=== PATIENT | male | born 1985 | race Caucasian/White ===

== ENCOUNTER 2022-11-26 10:37 | Inpatient (IN) ==
--- NOTE | 2022-11-26 11:34 | Emergency Department Note ---
History of Present Illness General Chief complaint: Referred by Doctor Stated complaint: STROKE ASSESSMENT; REFERRED BY Time Seen by Provider: 11/26/22 11:14 Source: patient, family (Father who is at the bedside), RN notes reviewed and old records reviewed (Notes from the retinal specialist office) Mode of arrival: ambulatory Limitations: no limitations History of Present Illness Maximum Pain Intensity: 2 This patient is a 37-year-old male who was sent over from the retinal specialist office, Dr. 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 The patient tells me he is I started getting blurry on the right last Saturday. It is like a line in the middle to the right that he can see its been getting better he also had a headache but that is getting better as well as right-sided. No fall or trauma no difficulty speaking or swallowing no numbness or weakness. No difficulty ambulating. Denies chest pain shortness of breath or palpitations. no abdominal pain. no urinary symptoms. No history of any similar complaints or strokes. No blood clotting disorders in the patient or his family Past Med/Surg History Social History Smoking Status: Never smoker Feels Safe at Home: Yes Immunizations: Past medical historyseizures his last 1 was at age 15 he takes carbamazepine. No missed medications. GERD. Iron deficiency. He does have a history of hypertension and was on meds in the past but they took him off because his blood pressure was running low apparently. No history of blood clotting disorder or cardiac disease Family historyno clotting disorder Social historydoes not smoke. Rarely. Denies drug use. He is employed as a information security consultant. He lives in [place] Review of Systems A total of 10 systems reviewed and were otherwise negative Physical Exam Vital Signs Vital Signs - 24 hr 11/26/22 10:41 11/26/22 11:33 11/26/22 11:40 Temperature 36.6 C Temperature Source Temporal Artery Scan Pulse Rate 76 83 Pulse Rate [Apical] 80 Pulse Rhythm [Apical] Regular Respiratory Rate 20 13 Respiratory Effort / Characteristics Non-Labored Non-Labored Spontaneous Respiratory Depth Normal Respiratory Pattern Blood Pressure 169/109 H Blood Pressure [Right Arm] 128/89 Blood Pressure Mean 129 Blood Pressure Mean [Right Arm] 102 Blood Pressure Position [Right Arm] Semi-fowlers Pulse Oximetry 99 100 Oxygen Delivery Method Room Air Room Air Sepsis Recent Fever Within 48 Hours No Sepsis New/Unexplained Change in Mental Status No Sepsis Action Taken by Nursing No Action Required 11/26/22 13:14 Temperature Temperature Source Pulse Rate Pulse Rate [Apical] 84 Pulse Rhythm [Apical] Regular Respiratory Rate 17 Respiratory Effort / Characteristics Non-Labored Spontaneous Respiratory Depth Normal Respiratory Pattern Regular Blood Pressure Blood Pressure [Right Arm] 136/88 Blood Pressure Mean Blood Pressure Mean [Right Arm] 104 Blood Pressure Position [Right Arm] Semi-fowlers Pulse Oximetry 100 Oxygen Delivery Method Room Air Sepsis Recent Fever Within 48 Hours Sepsis New/Unexplained Change in Mental Status Sepsis Action Taken by Nursing General: Well developed well nourished in no acute distress, breathing comfortably on room air. Normal speech HEENT: Normal cephalic atraumatic. Eyes are dilated bilaterally from his district court justice visit this morning. Extraocular movements are intact. Oropharynx is pink with moist mucous membranes. No swelling of the mouth lips or tongue. Neck: Supple with a midline trachea. No meningeal signs or stiffness, no JVD or bruits. No Stridor. Chest: Clear to auscultation bilaterally. No wheezes or rhonchi. No increased work of breathing. Heart: Regular rate and rhythm without murmurs or gallops. Abdomen: Soft nontender, nondistended without rebound guarding or rigidity. Extremities: No cyanosis clubbing or edema. No calf tenderness or assymetry Spine/Back. Non tender to palpation. No CVA tenderness Skin: Good turgor without rashes. Neurologic exam: Cranial nerves two through 12 are intact. Motor and sensation are intact and symmetrical throughout. Finger-nose intact. No pronator drift Course Administered Medications Discontinued Medications Aspirin (Aspirin 81 Mg Chew) 324 mg PO NOW STA Stop: 11/26/22 13:01 Last Admin: 11/26/22 13:12 Dose: 324 mg Documented By: AB Sodium Chloride (Nss 1000ml) 1,000 mls @ 999 mls/hr IV .Q1H1M ONE Stop: 11/26/22 12:51 Last Infusion: 11/26/22 13:14 Dose: 0 mls/hr Documented By: Admin: 11/26/22 11:56 Dose: 999 mls/hr Documented By: Ioversol (Optiray 320 500ml) 112 ml IV ONCE ONE Stop: 11/26/22 12:26 Last Admin: 11/26/22 12:25 Dose: 112 ml Documented By: JANIS Medical Decision Making Differential Diagnosis Stroke, ocular migraine, carotid disease, vascular disease, clotting disorder, electrolyte or metabolic abnormality, hypertension Medical Records Attestation: I reviewed the patient's medical records. Home Medications Current Medication List: was personally reviewed by me Laboratory Data 11/26/22 10:45 11/26/22 10:45 Lab Results 11/26/22 11/26/22 11/26/22 Range/Units 10:45 10:45 10:45 WBC 7.35 (4.8-10.8) K/ul RBC 4.98 (4.70-6.10) M/uL Hgb 14.0 (14.0-18.0) g/dl Hct 41.7 L (42.0-52.0) % MCV 83.7 (80.0-100.0) fL MCH 28.1 (25.0-34.0) pg MCHC 33.6 (32.0-36.0) g/dL RDW Std Deviation 38.4 (36.4-46.3) fL RDW Coeff of Suzanne 12.7 (11.5-14.5) % Plt Count 301 (130-400) K/uL MPV 10.0 (9.4-12.4) fL ESR (0-15) mm/hr PT 10.3 (9.0-12.0) Seconds INR 1.0 (0.9-1.1) APTT 28.0 (21.0-31.0) Seconds PTT Ratio 1.0 Sodium 138 (136-145) mmol/L Potassium 4.2 (3.5-5.1) mmol/L Chloride 104 (98-107) mmol/L Carbon Dioxide 29 (21-32) mmol/L Anion Gap 5 (3-11) BUN 13 (6-23) mg/dl Creatinine 0.90 (0.6-1.4) mg/dl Est Cr Clr Drug Dosing 142.7 ml/min Est GFR ( Amer) 127.8 ml/min Est GFR (Non-Af Amer) 110.3 ml/min BUN/Creatinine Ratio 14.4 (10-20) Glucose 97 (70-99(Fasting)) mg/dl Calcium 9.4 (8.6-10.3) mg/dl Magnesium 1.9 (1.7-2.4) mg/dl Total Bilirubin 0.4 (0.2-1.0) mg/dl AST 25 (13-39) U/L ALT 44 (7-52) U/L Alkaline Phosphatase 97 (34-104) U/L Troponin I High Sens 3.7 (0-20) pg/ml C-Reactive Protein < 0.50 (0-0.5) mg/dl Total Protein 7.3 (6.0-8.3) gm/dl Albumin 4.6 (3.4-5.0) gm/dl Globulin 2.7 (2.5-4.0) gm/dl Albumin/Globulin Ratio 1.7 (0.9-2) 11/26/22 Range/Units 10:45 WBC (4.8-10.8) K/ul RBC (4.70-6.10) M/uL Hgb (14.0-18.0) g/dl Hct (42.0-52.0) % MCV (80.0-100.0) fL MCH (25.0-34.0) pg MCHC (32.0-36.0) g/dL RDW Std Deviation (36.4-46.3) fL RDW Coeff of Suzanne (11.5-14.5) % Plt Count (130-400) K/uL MPV (9.4-12.4) fL ESR 12 (0-15) mm/hr PT (9.0-12.0) Seconds INR (0.9-1.1) APTT (21.0-31.0) Seconds PTT Ratio Sodium (136-145) mmol/L Potassium (3.5-5.1) mmol/L Chloride (98-107) mmol/L Carbon Dioxide (21-32) mmol/L Anion Gap (3-11) BUN (6-23) mg/dl Creatinine (0.6-1.4) mg/dl Est Cr Clr Drug Dosing ml/min Est GFR ( Amer) ml/min Est GFR (Non-Af Amer) ml/min BUN/Creatinine Ratio (10-20) Glucose (70-99(Fasting)) mg/dl Calcium (8.6-10.3) mg/dl Magnesium (1.7-2.4) mg/dl Total Bilirubin (0.2-1.0) mg/dl AST (13-39) U/L ALT (7-52) U/L Alkaline Phosphatase (34-104) U/L Troponin I High Sens (0-20) pg/ml C-Reactive Protein (0-0.5) mg/dl Total Protein (6.0-8.3) gm/dl Albumin (3.4-5.0) gm/dl Globulin (2.5-4.0) gm/dl Albumin/Globulin Ratio (0.9-2) Imaging Data Attestation: I personally reviewed and interpreted this imaging study as follows: My Impression: Head CTno hemorrhage or mass effect seen Chest x-rayno acute infiltrate, failure, pneumothorax seen Radiologist's Impression: Chest X-Ray 11/26/22 10:45 SINGLE VIEW CHEST CLINICAL HISTORY: Strokelike symptoms. FINDINGS: An AP, portable, upright chest radiograph is obtained. No prior studies are available for comparison at the time of dictation. The cardiomediastinal silhouette is unremarkable. There is mild elevation of the right hemidiaphragm. The lungs and pleural spaces are clear. No pneumothorax is seen. The bony thorax is grossly intact. IMPRESSION: No active disease in the chest. ACT 112: Negative or not required by law. Electronically signed by: Jt Lamar M.D. 11/26/2022 11:[address] 11/26/22 10:[address] OF THE BRAIN; CT ANGIOGRAM OF THE BRAIN; CT ANGIOGRAM OF THE NECK CLINICAL HISTORY: Neurological deficit. Stroke like symptoms. COMPARISON STUDY: No priors. TECHNIQUE: Unenhanced axial CT scan of the brain is performed. Subsequently, following the IV administration of 112 of Optiray 320, CT angiogram of the head and neck was performed from the aortic arch to the vertex. Images are reviewed in the axial, sagittal, and coronal planes. 3-D MIPS images are created and assessed. IV contrast was administered without complication. All measurements were calculated based on NASCET criteria. A dose lowering technique was utilized adhering to the principles of ALARA. CT DOSE: 1183.43 mGy.cm FINDINGS: Brain parenchyma: The brain parenchyma is normal in appearance. There is no hemorrhage, mass effect, or evidence of acute territorial ischemia by CT criteria. There is no evidence of enhancing mass lesion on the angiogram phase images. The ventricles, sulci, and cisterns are normal in configuration. Rivera- white matter differentiation is preserved. No extra-axial fluid collection is seen. Thoracic aorta: Visualized portions of the thoracic aorta are normal in caliber. The aortic arch demonstrates standard 3-vessel anatomy. Right carotid arterial system: The right common carotid artery is widely patent, as are the right internal and external carotid arteries. Left carotid arterial system: The left common carotid artery is widely patent, as are the left internal and external carotid arteries. Vertebral arteries: The vertebral arteries are widely patent bilaterally noting mild right-sided dominance. Subclavian arteries: Widely patent bilaterally. Intracranial vasculature: The poarch of Gupta is developmentally complete. The internal carotid arteries are patent at the skull base, as are the anterior and middle cerebral arteries bilaterally. The vertebrobasilar system and posterior cerebral arteries are widely patent. The right vertebral artery is dominant. There is no aneurysm, high-grade stenosis, or focal vessel cut off seen throughout the intracranial circulation. Jugular veins: Patent bilaterally. Dural sinuses: Patent. Lung apices: Partially visualized upper lobe lung parenchyma appears clear. Soft tissues: The visualized pharyngeal soft tissues are normal in appearance noting angiographic phase technique. The oropharyngeal airway appears widely patent. The salivary and thyroid glands are normal in appearance. No cervical lymphadenopathy is seen. Skeletal structures: The calvarium appears intact. The cervical spine is within normal limits. Orbits: The bony orbits are intact. Orbital contents are normal as visualized. Sinuses and mastoids: There is trace mucosal thickening in the right maxillary antrum. The remaining paranasal sinuses are clear. The mastoid air cells are well pneumatized. IMPRESSION: 1. There is no hemorrhage, mass effect, or evidence of acute territorial ischemia by CT criteria. 2. Unremarkable CT angiogram of the brain. 3. Unremarkable CT angiogram of the neck. ACT 112: Negative or not required by law. Electronically signed by: Jt Lamar M.D. 11/26/2022 12:35 PM Head CTA 11/26/22 11:[address] OF THE BRAIN; CT ANGIOGRAM OF THE BRAIN; CT ANGIOGRAM OF THE NECK CLINICAL HISTORY: Neurological deficit. Stroke like symptoms. COMPARISON STUDY: No priors. TECHNIQUE: Unenhanced axial CT scan of the brain is performed. Subsequently, following the IV administration of 112 of Optiray 320, CT angiogram of the head and neck was performed from the aortic arch to the vertex. Images are reviewed in the axial, sagittal, and coronal planes. 3-D MIPS images are created and ass essed. IV contrast was administered without complication. All measurements were calculated based on NASCET criteria. A dose lowering technique was utilized adhering to the principles of ALARA. CT DOSE: 1183.43 mGy.cm FINDINGS: Brain parenchyma: The brain parenchyma is normal in appearance. There is no hemorrhage, mass effect, or evidence of acute territorial ischemia by CT criteria. There is no evidence of enhancing mass lesion on the angiogram phase images. The ventricles, sulci, and cisterns are normal in configuration. Rivera- white matter differentiation is preserved. No extra-axial fluid collection is seen. Thoracic aorta: Visualized portions of the thoracic aorta are normal in caliber. The aortic arch demonstrates standard 3-vessel anatomy. Right carotid arterial system: The right common carotid artery is widely patent, as are the right internal and external carotid arteries. Left carotid arterial system: The left common carotid artery is widely patent, as are the left internal and external carotid arteries. Vertebral arteries: The vertebral arteries are widely patent bilaterally noting mild right-sided dominance. Subclavian arteries: Widely patent bilaterally. Intracranial vasculature: The poarch of Gupta is developmentally complete. The internal carotid arteries are patent at the skull base, as are the anterior and middle cerebral arteries bilaterally. The vertebrobasilar system and posterior cerebral arteries are widely patent. The right vertebral artery is dominant. There is no aneurysm, high-grade stenosis, or focal vessel cut off seen throughout the intracranial circulation. Jugular veins: Patent bilaterally. Dural sinuses: Patent. Lung apices: Partially visualized upper lobe lung parenchyma appears clear. Soft tissues: The visualized pharyngeal soft tissues are normal in appearance noting angiographic phase technique. The oropharyngeal airway appears widely patent. The salivary and thyroid glands are normal in appearance. No cervical lymphadenopathy is seen. Skeletal structures: The calvarium appears intact. The cervical spine is within normal limits. Orbits: The bony orbits are intact. Orbital contents are normal as visualized. Sinuses and mastoids: There is trace mucosal thickening in the right maxillary antrum. The remaining paranasal sinuses are clear. The mastoid air cells are well pneumatized. IMPRESSION: 1. There is no hemorrhage, mass effect, or evidence of acute territorial ischemia by CT criteria. 2. Unremarkable CT angiogram of the brain. 3. Unremarkable CT angiogram of the neck. ACT 112: Negative or not required by law. Electronically signed by: Jt Lamar M.D. 11/26/2022 12:35 PM Neck CTA 11/26/22 11:[address] OF THE BRAIN; CT ANGIOGRAM OF THE BRAIN; CT ANGIOGRAM OF THE NECK CLINICAL HISTORY: Neurological deficit. Stroke like symptoms. COMPARISON STUDY: No priors. TECHNIQUE: Unenhanced axial CT scan of the brain is performed. Subsequently, following the IV administration of 112 of Optiray 320, CT angiogram of the head and neck was performed from the aortic arch to the vertex. Images are reviewed in the axial, sagittal, and coronal planes. 3-D MIPS images are created and assessed. IV contrast was administered without complication. All measurements were calculated based on NASCET criteria. A dose lowering technique was utilized adhering to the principles of ALARA. CT DOSE: 1183.43 mGy.cm FINDINGS: Brain parenchyma: The brain parenchyma is normal in appearance. There is no hemorrhage, mass effect, or evidence of acute territorial ischemia by CT criteria. There is no evidence of enhancing mass lesion on the angiogram phase images. The ventricles, sulci, and cisterns are normal in configuration. Rivera- white matter differentiation is preserved. No extra-axial fluid collection is seen. Thoracic aorta: Visualized portions of the thoracic aorta are normal in caliber. The aortic arch demonstrates standard 3-vessel anatomy. Right carotid arterial system: The right common carotid artery is widely patent, as are the right internal and external carotid arteries. Left carotid arterial system: The left common carotid artery is widely patent, as are the left internal and external carotid arteries. Vertebral arteries: The vertebral arteries are widely patent bilaterally noting mild right-sided dominance. Subclavian arteries: Widely patent bilaterally. Intracranial vasculature: The poarch of Gupta is developmentally complete. The internal carotid arteries are patent at the skull base, as are the anterior and middle cerebral arteries bilaterally. The vertebrobasilar system and posterior cerebral arteries are widely patent. The right vertebral artery is dominant. There is no aneurysm, high-grade stenosis, or focal vessel cut off seen throughout the intracranial circulation. Jugular veins: Patent bilaterally. Dural sinuses: Patent. Lung apices: Partially visualized upper lobe lung parenchyma appears clear. Soft tissues: The visualized pharyngeal soft tissues are normal in appearance noting angiographic phase technique. The oropharyngeal airway appears widely patent. The salivary and thyroid glands are normal in appearance. No cervical lymphadenopathy is seen. Skeletal structures: The calvarium appears intact. The cervical spine is within normal limits. Orbits: The bony orbits are intact. Orbital contents are normal as visualized. Sinuses and mastoids: There is trace mucosal thickening in the right maxillary antrum. The remaining paranasal sinuses are clear. The mastoid air cells are well pneumatized. IMPRESSION: 1. There is no hemorrhage, mass effect, or evidence of acute territorial i schemia by CT criteria. 2. Unremarkable CT angiogram of the brain. 3. Unremarkable CT angiogram of the neck. ACT 112: Negative or not required by law. Electronically signed by: Jt Lamar M.D. 11/26/2022 12:35 PM ECG Data Attestation: I personally reviewed and interpreted this ECG as follows: Indication: + weakness Rate (beats per minute): 79 Rhythm: + normal sinus ECG [place]: + Normal ECG ST segments: + Normal ST segments ECG Findings: no PVCs Comparison ECG Date: no prior available MDM Narrative This patient comes in as described above. He was placed in room C1 on a hospital monitor. he was sent over from his district court justice to have a stroke work-up as he was diagnosed this morning with a branch retinal artery occlusion. His symptoms happened a week ago and therefore he is outside of the thrombolytic and intervention window. He does have hypertension history but otherwise I would think he is low risk for strokes. No known clotting disorders. He has a normal neurologic exam with exception of dilated bilateral eyes from the district court justice. I did order stroke work-up. IV access established, EKG was obtained and shows no ischemic changes and no arrhythmia. He is not in A-fib. His troponin is not elevated. He has no significant lecture light or metabolic abnormality. He does not suggest infection. His inflammatory markers including sed rate and CRP are unremarkable and not elevated. CAT scan of his head as well as CT angio of the head and neck were unremarkable. The patient was given chewable aspirin once it was confirmed there is no hemorrhage. I do think he needs to be admitted/observed for stroke work-up as well as a hypercoagulation work-up given the fact that he is only 37. I did discuss case with Dr. Jeff Hercules from the [facility] hospitalist group and he agrees with this. I also discussed case with Dr. Ayush Barton who is a neurologist he agrees with the aspirin and does not recommend any further anticoagulation at this point since he is getting better. The patient will be admitted/observed for further treatment and evaluation Impression & Plan Acute CVA (cerebrovascular accident), Retinal artery occlusion, Visual changes, Lab test negative for COVID-19 virus, Hx of seizure disorder Discharge Plan Visit Data Chief Complaint: Referred by Doctor Stated Complaint: STROKE ASSESSMENT; REFERRED BY ED Provider: Ben Mccartney Discharge Problem: Acute CVA (cerebrovascular accident), Retinal artery occlusion, Visual changes, Lab test negative for COVID-19 virus, Hx of seizure disorder Forms Stand Alone Forms: My [facility] Referrals Referrals: PCP,NO [Physician] -
[2022-11-26 11:48] LABS: Hematocrit (blood only) 41.7 % (42.0-52.0); Mean Corpuscular Hemoglobin 28.1 pg (25.0-34.0); Mean Corpuscular Hgb Conc 33.6 g/dL (32.0-36.0); Mean Corpuscular Volume 83.7 fL (80.0-100.0); Platelet Count 301 K/uL (130-400); RDW Coefficient of Variation 12.7 % (11.5-14.5); RDW Standard Deviation 38.4 fL (36.4-46.3); Red Blood Count 4.98 M/uL (4.70-6.10); White Blood Count 7.35 K/ul (4.8-10.8)
[2022-11-26] MEDS ORDERED: SODIUM CHLORIDE 0.9% 1000ML 1,000 ML IV ONE (11:51)
--- NOTE | 2022-11-26 11:57 | XRay Report ---
SINGLE VIEW CHEST CLINICAL HISTORY: Strokelike symptoms. FINDINGS: An AP, portable, upright chest radiograph is obtained. No prior studies are available for c omparison at the time of dictation. The cardiomediastinal silhouette is unremarkable. There is mild e levation of the right hemidiaphragm. The lungs and pleural spaces are clear. No pneumothorax is seen. The bony thorax is grossly intact. IMPRESSION: No active disease in the chest. ACT 112: Negative or not required by law. Electronically signed by: Jt Lamar M.D. 11/26/2022 11:55 AM
[2022-11-26 12:10] LABS: Alanine Aminotransferase 44 U/L (7-52); Albumin Globulin Ratio 1.7 (0.9-2); Albumin Level 4.6 gm/dl (3.4-5.0); Alkaline Phosphatase 97 U/L (34-104); Anion Gap 5 (3-11); Aspartate Aminotransferase 25 U/L (13-39); BUN Creatinine Ratio 14.4 (10-20); Bilirubin,Total 0.4 mg/dl (0.2-1.0); Blood Urea Nitrogen 13 mg/dl (6-23); Calcium 9.4 mg/dl (8.6-10.3); Carbon Dioxide 29 mmol/L (21-32); Chloride 104 mmol/L (98-107); Creatinine Clr Calc Pharmacy 142.7 ml/min; Est GFR (African American) 127.8 ml/min; Est GFR (Non-African American) 110.3 ml/min; Globulin 2.7 gm/dl (2.5-4.0); Glucose 97 mg/dl (70-99(Fasting)); Magnesium 1.9 mg/dl (1.7-2.4); Potassium 4.2 mmol/L (3.5-5.1); Sodium 138 mmol/L (136-145); Total Protein 7.3 gm/dl (6.0-8.3)
[2022-11-26 12:16] LABS: Prothrombin Time 10.3 Seconds (9.0-12.0); Troponin I High Sensitivity 3.7 pg/ml (0-20)
[2022-11-26] MEDS ORDERED: OPTIRAY 320 500ml IV ONE (12:25)
--- NOTE | 2022-11-26 12:36 | CT Scan Report ---
UNENHANCED CT OF THE BRAIN; CT ANGIOGRAM OF THE BRAIN; CT ANGIOGRAM OF THE NECK CLINICAL HISTORY: Neurological deficit. Stroke like symptoms. COMPARISON STUDY: No priors. TECHNIQUE: Unenhanced axial CT scan of the brain is performed. Subsequently, following the IV adminis tration of 112 of Optiray 320, CT angiogram of the head and neck was performed from the aortic arch t o the vertex. Images are reviewed in the axial, sagittal, and coronal planes. 3-D MIPS images are cre ated and assessed. IV contrast was administered without complication. All measurements were calculate d based on NASCET criteria. A dose lowering technique was utilized adhering to the principles of ALA RA. CT DOSE: 1183.43 mGy.cm FINDINGS: Brain parenchyma: The brain parenchyma is normal in appearance. There is no hemorrhage, mass effect, or evidence of acute territorial ischemia by CT criteria. There is no evidence of enhancing mass lesi on on the angiogram phase images. The ventricles, sulci, and cisterns are normal in configuration. Gr ay-white matter differentiation is preserved. No extra-axial fluid collection is seen. Thoracic aorta: Visualized portions of the thoracic aorta are normal in caliber. The aortic arch demo nstrates standard 3-vessel anatomy. Right carotid arterial system: The right common carotid artery is widely patent, as are the right int ernal and external carotid arteries. Left carotid arterial system: The left common carotid artery is widely patent, as are the left international broadcast music librarian al and external carotid arteries. Vertebral arteries: The vertebral arteries are widely patent bilaterally noting mild right-sided ruel nance. Subclavian arteries: Widely patent bilaterally. Intracranial vasculature: The [place] of Gupta is developmentally complete. The internal carotid rubi walt are patent at the skull base, as are the anterior and middle cerebral arteries bilaterally. The vertebrobasilar system and posterior cerebral arteries are widely patent. The right vertebral artery is dominant. There is no aneurysm, high-grade stenosis, or focal vessel cut off seen throughout the i ntracranial circulation. Jugular veins: Patent bilaterally. Dural sinuses: Patent. Lung apices: Partially visualized upper lobe lung parenchyma appears clear. Soft tissues: The visualized pharyngeal soft tissues are normal in appearance noting angiographic pha se technique. The oropharyngeal airway appears widely patent. The salivary and thyroid glands are nor mal in appearance. No cervical lymphadenopathy is seen. Skeletal structures: The calvarium appears intact. The cervical spine is within normal limits. Orbits: The bony orbits are intact. Orbital contents are normal as visualized. Sinuses and mastoids: There is trace mucosal thickening in the right maxillary antrum. The remaining paranasal sinuses are clear. The mastoid air cells are well pneumatized. IMPRESSION: 1. There is no hemorrhage, mass effect, or evidence of acute territorial ischemia by CT criteria. 2. Unremarkable CT angiogram of the brain. 3. Unremarkable CT angiogram of the neck. ACT 112: Negative or not required by law. Electronically signed by: Jt Lamar M.D. 11/26/2022 12:35 PM
[2022-11-26] MEDS ORDERED: ASPIRIN 81 MG CHEW PO STA (13:00)
[2022-11-26 13:51] LABS: C Reactive Protein < 0.50 mg/dl (0-0.5)
--- NOTE | 2022-11-26 14:01 | History & Physical Report ---
Date of Service November 26, 2022 Assessment & Plan (1) Retinal artery occlusion: Plan: Branch Symptoms started one week ago and improving ASA 324mg PO given in ER. ER provider discussed with neurology and recommended just continuing ASA alone. 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 The patient reports first having symptoms of seeing a line on his right eye on Saturday and went to [facility]. He was diagnosed with possible ocular migraine with associated right neck and frontal headache although he has no significant history of migraines. However his symptoms persisted therefore he followed up with a retinal specialist office Dr Danyel mancuso and was diagnosed with a branch retinal artery occlusion. Therefore he was sent to the ER for further evaluation. He denies any other symptoms of stroke such as change in speech, vision, hearing, extremity weakness or change in sensation. No significant family history of strokes or heart attack at a young age. He has a history of seizures for which he takes compazine but last seizure was aged 15. Allergies Allergy/AdvReac Type Severity Reaction Status Date / Time coconut Allergy Mild Hives Verified 11/26/22 20:07 Home Medications Medication Instructions Recorded Confirmed Type asqzcbtsch-drynuymwhycjg-eurcsnov 1 tab PO Q8 PRN Headache 11/26/22 11/26/22 History 50 mg-325 mg-40 mg tablet carbamazepine 300 mg 600 mg PO DAILY 11/26/22 11/26/22 History capsule,extended release [id number] pantoprazole 40 mg tablet,delayed 40 mg PO DAILY 11/26/22 11/26/22 History release Past Med/Surg History Medical History (Updated 11/27/22 @ 07:28 by Jeff Hercules MD) Hx of seizure disorder Social History Smoking Status: Never smoker Second Hand Exposure: No; Do You Dip or Chew Tobacco: No; Tobacco Cessation Education Requested by Patient: No Hx Alcohol Use: Yes Alcohol type: beer Hx Substance Use: No Preferred Language: Azerbaijani Part Time Flexible Clerk Required: No Beliefs That Will Affect Care: None Current Living Situation: Spouse Other Information That Helps Us Care for You: No Feels Safe at Home: Yes Safety Concerns: Feels Safe At This Time Review of Systems Review of Systems: All systems reviewed & are unremarkable except as noted in HPI & below Physical Exam Constitutional: WD/WN, vitals as above Eyes: PERRL, conjunctivae normal, anicteric sclerae normal visual pearson by confrontation ENMT: external ear and nose normal, oropharynx normal Neck: trachea midline, no thyromegaly Respiratory: normal respiratory effort, lungs clear to auscultation Cardiovascular: RRR, no murmur, no edema Gastrointestinal (Abdomen): normal bowel sounds, soft, nontender, no hepatosplenomegaly Musculoskeletal: no cyanosis or clubbing, extremities motor strength 5/5 Skin: no rashes, warm and dry Neurologic: moves all extremities and awake; not confused Psychiatric: A+Ox3, euthymic affect Results & Data Results & Data Vital Signs (Past 12 Hours) Vital Signs Temp Pulse Pulse Resp BP BP Pulse Ox 11/26/22 13:14 84 17 136/88 100 11/26/22 11:40 83 11/26/22 11:33 80 13 128/89 100 11/26/22 10:41 36.6 C 76 20 169/109 H 99 O2 Del Method 11/26/22 13:14 Room Air 11/26/22 11:40 11/26/22 11:33 Room Air 11/26/22 10:41 Room Air Laboratory Results Abnormal lab results 11/26/22 Range/Units 10:45 Hct 41.7 L (42.0-52.0) % Diagnostic Findings SINGLE VIEW CHEST CLINICAL HISTORY: Strokelike symptoms. FINDINGS: An AP, portable, upright chest radiograph is obtained. No prior studies are available for comparison at the time of dictation. The cardiomediastinal silhouette is unremarkable. There is mild elevation of the right hemidiaphragm. The lungs and pleural spaces are clear. No pneumothorax is seen. The bony thorax is grossly intact. IMPRESSION: No active disease in the chest. UNENHANCED CT OF THE BRAIN; CT ANGIOGRAM OF THE BRAIN; CT ANGIOGRAM OF THE NECK CLINICAL HISTORY: Neurological deficit. Stroke like symptoms. COMPARISON STUDY: No priors. TECHNIQUE: Unenhanced axial CT scan of the brain is performed. Subsequently, following the IV administration of 112 of Optiray 320, CT angiogram of the head and neck was performed from the aortic arch to the vertex. Images are reviewed in the axial, sagittal, and coronal planes. 3-D MIPS images are created and assessed. IV contrast was administered without complication. All measurements were calculated based on NASCET criteria. A dose lowering technique was utilized adhering to the principles of ALARA. CT DOSE: 1183.43 mGy.cm FINDINGS: Brain parenchyma: The brain parenchyma is normal in appearance. There is no hemorrhage, mass effect, or evidence of acute territorial ischemia by CT criteria. There is no evidence of enhancing mass lesion on the angiogram phase images. The ventricles, sulci, and cisterns are normal in configuration. Rivera- white matter differentiation is preserved. No extra-axial fluid collection is seen. Thoracic aorta: Visualized portions of the thoracic aorta are normal in caliber. The aortic arch demonstrates standard 3-vessel anatomy. Right carotid arterial system: The right common carotid artery is widely patent, as are the right internal and external carotid arteries. Left carotid arterial system: The left common carotid artery is widely patent, as are the left internal and external carotid arteries. Vertebral arteries: The vertebral arteries are widely patent bilaterally noting mild right-sided dominance. Subclavian arteries: Widely patent bilaterally. Intracranial vasculature: The [place] is developmentally complete. The internal carotid arteries are patent at the skull base, as are the anterior and middle cerebral arteries bilaterally. The vertebrobasilar system and posterior cerebral arteries are widely patent. The right vertebral artery is dominant. There is no aneurysm, high-grade stenosis, or focal vessel cut off seen throughout the intracranial circulation. Jugular veins: Patent bilaterally. Dural sinuses: Patent. Lung apices: Partially visualized upper lobe lung parenchyma appears clear. Soft tissues: The visualized pharyngeal soft tissues are normal in appearance noting angiographic phase technique. The oropharyngeal airway appears widely patent. The salivary and thyroid glands are normal in appearance. No cervical lymphadenopathy is seen. Skeletal structures: The calvarium appears intact. The cervical spine is within normal limits. Orbits: The bony orbits are intact. Orbital contents are normal as visualized. Sinuses and mastoids: There is trace mucosal thickening in the right maxillary antrum. The remaining paranasal sinuses are clear. The mastoid air cells are well pneumatized. IMPRESSION: 1. There is no hemorrhage, mass effect, or evidence of acute territorial ischemi a by CT criteria. 2. Unremarkable CT angiogram of the brain. 3. Unremarkable CT angiogram of the neck. Medications Administered ER Medications Given: NSS 1L bolus Aspirin 324mg PO ECG Rate (beats per minute): 79 Rhythm: normal sinus Findings: no acute ischemic change Comparison ECG Date: no prior available Code Status & VTE Plan Code Status Full VTE Prophylaxis Plan VTE Prophylaxis will be ordered: No PG Care Time/CCT Total # of Minutes Spent Total Time Spent with Patient: Total time spent is greater than 50% in coordination of care (as documented) at patient's floor/unit and/or counseling patient: Coding Level of Care Code 47027 INT INP/OBS CARE 2/55MIN Diagnoses Retinal artery occlusion H34.9 Visual changes H53.9 Hx of seizure disorder Z86.69
[2022-11-26] MEDS ORDERED: ACETAMINOPHEN 325 MG TAB PO PRN (15:29)
[2022-11-26] MEDS ORDERED: ONDANSETRON INJ 2 MG/ML 2 ML VIAL IV PRN (15:29)
--- NOTE | 2022-11-26 15:54 | Magnetic Resonance Report ---
MRI OF THE BRAIN WITHOUT IV CONTRAST CLINICAL HISTORY: Retinal artery occlusion. COMPARISON STUDY: CT of the brain performed the same day 11/26/2022. TECHNIQUE: MRI of the brain was performed utilizing various T1 and T2-weighted sequences in the axial , sagittal, and coronal planes. IV contrast was not administered for this examination. FINDINGS: Brain parenchyma: The brain parenchyma is normal in appearance. There is no hemorrhage or mass effect . There is no restricted diffusion to suggest acute ischemia. Rivera-white matter differentiation is pr eserved. No extra-axial fluid collection is seen. The cerebellar tonsils are normal in configuration. Ventricles, sulci, and cisterns: Normal in configuration. Pituitary and sella: Unremarkable. Intracranial vasculature: Normal flow voids are maintained at the skull base. Orbits: The bony orbits are grossly intact. Orbital contents are normal in appearance. Sinuses and mastoids: Clear. Calvarium: Unremarkable. Cervical cord: Partially visualized cervical spinal cord is normal in morphology and signal intensity . IMPRESSION: No acute intracranial abnormality. ACT 112: Negative or not required by law. Electronically signed by: Jt Lamar M.D. 11/26/2022 3:53 PM
--- NOTE | 2022-11-26 21:32 | XCELERA ---
[id number]
[2022-11-27] MEDS: [UNRECOGNIZED DRUG - REMARK] SCH ×2 (01:01→08:45)
[2022-11-27 07:48] LABS: Basophils # (auto) 0.06 K/uL (0-0.2); Eosinophils # (auto) 0.15 K/uL (0-0.50); Eosinophils % (auto) 2.6 %; Hematocrit (blood only) 39.5 % (42.0-52.0); Hemoglobin 13.6 g/dl (14.0-18.0); Immature Granulocytes # (auto) 0.02 K/uL (0.01-0.20); Immature Granulocytes % (auto) 0.3 %; Lymphocytes # (auto) 1.73 K/uL (1.2-3.4); Lymphocytes % (auto) 29.7 %; Mean Corpuscular Hemoglobin 28.2 pg (25.0-34.0); Mean Corpuscular Hgb Conc 34.4 g/dL (32.0-36.0); Mean Platelet Volume 9.9 fL (9.4-12.4); Monocytes % (auto) 6.9 %; Neutrophils # (auto) 3.47 K/uL (1.40-6.50); Neutrophils % (auto) 59.5 %; Platelet Count 264 K/uL (130-400); RDW Coefficient of Variation 12.8 % (11.5-14.5); Red Blood Count 4.82 M/uL (4.70-6.10); White Blood Count 5.83 K/ul (4.8-10.8)
[2022-11-27 08:03] LABS: Albumin Level 4.1 gm/dl (3.4-5.0); BUN Creatinine Ratio 17.4 (10-20); Bilirubin,Total 0.5 mg/dl (0.2-1.0); Calcium 8.8 mg/dl (8.6-10.3); Chol HDL Ratio 4.5 (0-5); Creatinine Clr Calc Pharmacy 184.1 ml/min; Est GFR (African American) 142.6 ml/min; Globulin 2.1 gm/dl (2.5-4.0); Total Protein 6.2 gm/dl (6.0-8.3)
--- NOTE | 2022-11-27 08:42 | Neurology Consultation ---
Date of Consultation November 27, 2022 Assessment & Plan (1) Branch retinal artery occlusion of right eye: (2) Hx of seizure disorder: Plan patient had the onset acute blurry vision November 19 secondary to a branch retinal artery occlusion right eye, proven by Dr. Montaño, a retinal specialist, on November 26. Clinically, he is making improvements and feels he is about 50% better in that eye that he was a week ago. He was having some nonspecific occipital headaches but these have resolved. On exam he has no focal findings, meningeal signs, or encephalopathy. Testing has been largely unremarkable and he has no arterial issues in the head and neck by CT angiography. MRI of the brain shows no acute or chronic vascular changes. Echocardiogram showed some very mild left ventricular hypertrophy (consistent with hypertension ) and he was hypertensive on admission. The etiology of the branch retinal artery occlusion is likely secondary to hypertensive small vessel ischemic disease. Patient has a history of seizure disorder (uncertain type) as a child. He has had no seizures on carbamazepine since age 15. Recommendations: 1. continue with 81 mg aspirin tablet daily. 2. since his total cholesterol and triglycerides were normal and he has no evidence of cerebral vascular disease of a chronic nature, I do not believe he needs a statin. 3. Consider low-dose antihypertensive given his hypertensive history, the right branch stroke, and slight LVH. 4. check carbamazepine level (trough) -this could be done as an outpatient 5. I see no reason to restrict work or driving at this time. 6. I have no further neurologic testing or treatment recommendations to make at this time. Please contact me if I can be of further assistance on this case. Overall, I spent a total of 80 minutes with this case including review of records, review of CT and MRI films, direct evaluation the patient at bedside, report generation, and discussion of the case with the patient and RN at bedside and Dr. Dawson including differential diagnosis and treatment options. History of Present Illness Reason for Consultation: patient is a 37-year-old, who I was asked to see at the request of Dr. Hercules, neurologic consultation regarding a subacute right branch retinal artery occlusion Requesting Physician: Dr. Hercules Attending Physician: Jeff Dawson History of Present Illness this patient has a history of seizures as a very young child with no seizure after age 15, completely controlled on carbamazepine ER 600 mg a day. The patient has had a history of hypertension in the past having been on lisinopril but more recently he has not been on this medication. He denies hypertension, heart disease, previous stroke, dyslipidemia, or tobacco use. Patient was at work November 19 at 10:00 p.m. 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 It was a horizontal line in his central vision with no blurriness above or below this line. It was a cloudy color and he could see a little bit through it. He also had an occipital headache but he did not have any eye pain. There was no light sensitivity and the left eye was uninvolved. Over time, the headache would come and go and was fairly mild. Over the course of a week the vision mildly improved and he could see through the line a little bit better. Currently it is about 50% better than it was a week ago. On SaturdayNovember 26, he saw Dr. Montaño, a retinal specialist, who diagnosed a branch retinal artery occlusion in the right eye. He did an eye injection ( unknown medication ) And sent him to the emergency room. He arrived at the emergency room at 10:41 a.m. on November 26 with a temperature 36.6, pulse 76 and regular, blood pressure 2169/109, respiratory rate 20, and O2 saturation 99%. His neurologic examination was normal. There were no focal findings, meningeal signs, or encephalopathy. Therefore, NIH stroke scale was 0. CBC and Chem profile were unremarkable. Sed rate was 12 and CRP was less than 0.5. TSH was normal. Chest x-ray was unremarkable. CT angiography of the head and neck showed no vessel anomalies or stenoses. CT scan of the head showed no abnormalities. MRI of the brain was normal and showed no old small vessel ischemic disease. Echocardiogram was unremarkable although there was some very mild left ventricular hypertrophy Today the patient is stable and has no other issues or problems. He has no headache. Triglycerides were 125 and total cholesterol 177. Blood pressure is 126/84 and hemoglobin A1c is pending glucose was 93. Allergies Allergy/AdvReac Type Severity Reaction Status Date / Time coconut Allergy Mild Hives Verified 11/26/22 20:07 Home Medications Medication Instructions Recorded Confirmed Type pswxkkaeam-ubnjflrppvzjk-bgsohbcd 1 tab PO Q8 PRN Headache 11/26/22 11/26/22 History 50 mg-325 mg-40 mg tablet carbamazepine 300 mg 600 mg PO DAILY 11/26/22 11/26/22 History capsule,extended release [id number] pantoprazole 40 mg tablet,delayed 40 mg PO DAILY 11/26/22 11/26/22 History release Patient History Medical History Hx of seizure disorder Family History Mother Thyroid disease Father Dyslipidemia History of seizures as a child Social History Smoking Status: Never smoker Second Hand Exposure: No; Hx Alcohol Use: Yes Alcohol type: beer Alcohol Intake Frequency: 2-3 x/Week Alcohol Intake Frequency Comment: up to 3 beers once per week on weekend Hx Substance Use: No Preferred Language: Nepali Supervisor Sample Required: No Beliefs That Will Affect Care: None Current Living Situation: Spouse current occupational status: employed current occupation: network security officer Feels Safe at Home: Yes Review of Systems Constitutional: no fever, no fatigue and no weakness Eyes: + problem reported ( blurry horizontal line centrally in the right eye); no diplopia, no eye pain and no worsening vision Ear, Nose, Mouth, Throat: no ear pain, no tinnitus, no hearing loss, no dizziness, no snoring, no hoarseness and no dysphagia Respiratory: no cough and no dyspnea Cardiovascular: no chest pain, no palpitations and no lightheadedness Gastrointestinal: no abdominal pain, no nausea and no vomiting Musculoskeletal: no back pain, no neck pain, no radicular pain, no joint pain and no myalgia Integumentary: no rash and no lesions Neurologic: no gait abnormality, no localized weakness, no generalized weakness, no tingling, no numbness, no tremor(s), no abnormal movements, no headache(s), no abnormal speech, no confusion and no memory loss Psychiatric: no depression, no irritability, no anxiety, no difficulty concentrating, no confusion and no hallucinations Endocrine: no fatigue and no flushing Hematologic / Lymphatic: no easy bleeding and no easy bruising Allergy / Immunological: no urticaria and no problem reported Exam (Neuro) Physical Exam: The patient is right-handed. The patient is awake, alert, and attentive. Speech is normal without any aphasia or dysarthria. The patient can name objects, repeat phrases, and has normal spontaneous speech. Mentation and thought processes are intact, with orientation to person, place and time, and normal fund of knowledge. Attention and concentration are normal. Mood and affect are normal and appropriate. G eneral appearance and grooming are normal. Short and long-term memory are intact. The discs are sharp with positive venous pulsations bilaterally. There are no exudates, hemorrhages, or blood vessel changes seen. Pupils are 4 mm bilaterally and reactive to light. Extraocular eye muscles are intact without nystagmus. Visual acuity and visual pearson seem normal grossly to confrontation. There are no deficits to sensation in the face in all 3 distributions of the fifth cranial nerve bilaterally. Corneal reflexes are positive bilaterally. Facial strength and symmetry was normal bilaterally. Hearing seems normal bilaterally. Palate moves well without asymmetry. There is normal sternocleidomastoid and trapezius (shoulder shrug) strength bilaterally. Tongue is midline with good strength bilaterally. Neck has a full range of motion without discomfort. There are no cervical bruits bilaterally. There are no cranial or ocular bruits. Heart is without murmur. There is a regular rhythm and rate. Cervical, thoracic, and lumbar spine are nontender to palpation. Gait is narrow based, with good arm swing, turns, and stance. Balance is normal eyes open or closed. With outstretched arms there is no drift. There are no resting, postural, or action tremors. There is no ataxia with finger to nose testing. There is good facility in the hands. No other abnormal involuntary movements are noted. Motor strength is 5/5 diffusely in the arms bilaterally including deltoids, biceps, triceps, brachioradialis, wrist flexors and extensors, professor of chemistry, and intrinsic hand muscles. Motor strength is 5/5 diffusely in the legs bilaterally including hip flexors, quadriceps, hamstrings, gastrocnemius, tibialis anterior, tibialis posterior, and Peroneii muscles. Toe extensors are normal and there is good bulk in the extensor digitorum brevis muscles bilaterally. The limbs have good tone without rigidity or spasticity. There is no atrophy noted in the muscles. Muscle bulk is normal, there is no tenderness to palpation, no myotonia to percussion, and no fasciculations seen. Sensory examination is intact to touch and pin throughout all 4 limbs diffusely. Reflexes are 2/4 in the biceps, triceps, brachioradialis, quadriceps, and Achilles tendons bilaterally. There is no clonus bilaterally. Toes are downgoing with plantar stimulation bilaterally. Peripheral pulses are present and of normal quality distally in all 4 limbs. There is no peripheral edema noted in the limbs. Results & Data Vital Signs (Past 12 Hours) Vital Signs Temp Pulse Pulse Resp BP Pulse Ox O2 Del Method 11/27/22 07:15 60 11/27/22 04:00 36.4 C L 71 18 126/84 97 Room Air 11/26/22 23:05 36.5 C 70 18 122/84 97 Room Air 11/26/22 23:27 68 PG Care Time/CCT Total # of Minutes Spent Total Time Spent with Patient: Total time spent is greater than 50% in coordination of care (as documented) at patient's floor/unit and/or counseling patient: Coding Level of Care Code 07518 IN/OBS CONSULT LVL 5,80M Diagnoses Branch retinal artery occlusion of right eye H34.231 Hx of seizure disorder Z86.69 Time Spent (min) 80
[2022-11-27 08:49] LABS: Estimated Average Glucose 97 mg/dl
[2022-11-27] MEDS ORDERED: PANTOprazole 40 MG TAB PO SCH (09:00)
[2022-11-27] MEDS ORDERED: ASPIRIN 81 MG ECTAB PO SCH (09:00)
--- NOTE | 2022-11-27 11:10 | Discharge Summary ---
Date of Service date of admission - November 26, 2022 date of discharge - November 27, 2022 Admission HPI Per Admitting Provider Martah Obrien is a 37 year old male with history of seizures who presents to the ER on advice of his clinical services director due to a branch retinal artery occlusion seen on his right eye. The patient reports first having symptoms of seeing a line on his right eye on Saturday and went to [facility]. He was diagnosed with possible ocular migraine with associated right neck and frontal headache although he has no significant history of migraines. However his symptoms persisted therefore he followed up with a retinal specialist office Dr Danyel mancuso and was diagnosed with a branch retinal artery occlusion. Therefore he was sent to the ER for further evaluation. He denies any other symptoms of stroke such as change in speech, vision, hearing, extremity weakness or change in sensation. No significant family history of strokes or heart attack at a young age. He has a history of seizures for which he takes compazine but last seizure was aged 15. Principal Diagnosis Branch Retinal Artery Occlusion of Right Eye Discharge Exam gen - NAD, appears well eyes - PERRL neck - no JVD heart - RRR, s1 s2, no murmur lungs - CTA b/l abd - soft NT ND BS+ ext - no edema, pulses 2+ b/l neuro - strength 5/5 x 4 exts; no focal deficits Discharge Data Allergies Allergy/AdvReac Type Severity Reaction Status Date / Time coconut Allergy Mild Hives Verified 11/26/22 20:07 Consultations [facility] - Ayush Barton MD Procedures Performed Echocardiogram: Ordered Studies Chest X-Ray 11/26/22 10:45 SINGLE VIEW CHEST CLINICAL HISTORY: Strokelike symptoms. FINDINGS: An AP, portable, upright chest radiograph is obtained. No prior studies are available for comparison at the time of dictation. The cardiomediastinal silhouette is unremarkable. There is mild elevation of the right hemidiaphragm. The lungs and pleural spaces are clear. No pneumothorax is seen. The bony thorax is grossly intact. IMPRESSION: No active disease in the chest. ACT 112: Negative or not required by law. Electronically signed by: Jt Lamar M.D. 11/26/2022 11:[address] 11/26/22 10:[address] OF THE BRAIN; CT ANGIOGRAM OF THE BRAIN; CT ANGIOGRAM OF THE NECK CLINICAL HISTORY: Neurological deficit. Stroke like symptoms. COMPARISON STUDY: No priors. TECHNIQUE: Unenhanced axial CT scan of the brain is performed. Subsequently, following the IV administration of 112 of Optiray 320, CT angiogram of the head and neck was performed from the aortic arch to the vertex. Images are reviewed in the axial, sagittal, and coronal planes. 3-D MIPS images are created and assessed. IV contrast was administered without complication. All measurements were calculated based on NASCET criteria. A dose lowering technique was utilized adhering to the principles of ALARA. CT DOSE: 1183.43 mGy.cm FINDINGS: Brain parenchyma: The brain parenchyma is normal in appearance. There is no hemorrhage, mass effect, or evidence of acute territorial ischemia by CT criteria. There is no evidence of enhancing mass lesion on the angiogram phase images. The ventricles, sulci, and cisterns are normal in configuration. Rivera- white matter differentiation is preserved. No extra-axial fluid collection is seen. Thoracic aorta: Visualized portions of the thoracic aorta are normal in caliber. The aortic arch demonstrates standard 3-vessel anatomy. Right carotid arterial system: The right common carotid artery is widely patent, as are the right internal and external carotid arteries. Left carotid arterial system: The left common carotid artery is widely patent, as are the left internal and external carotid arteries. Vertebral arteries: The vertebral arteries are widely patent bilaterally noting mild right-sided dominance. Subclavian arteries: Widely patent bilaterally. Intracranial vasculature: The [place] is developmentally complete. The internal carotid arteries are patent at the skull base, as are the anterior and middle cerebral arteries bilaterally. The vertebrobasilar system and posterior cerebral arteries are widely patent. The right vertebral artery is dominant. There is no aneurysm, high-grade stenosis, or focal vessel cut off seen throughout the intracranial circulation. Jugular veins: Patent bilaterally. Dural sinuses: Patent. Lung apices: Partially visualized upper lobe lung parenchyma appears clear. Soft tissues: The visualized pharyngeal soft tissues are normal in appearance noting angiographic phase technique. The oropharyngeal airway appears widely patent. The salivary and thyroid glands are normal in appearance. No cervical lymphadenopathy is seen. Skeletal structures: The calvarium appears intact. The cervical spine is within normal limits. Orbits: The bony orbits are intact. Orbital contents are normal as visualized. Sinuses and mastoids: There is trace mucosal thickening in the right maxillary antrum. The remaining paranasal sinuses are clear. The mastoid air cells are well pneumatized. IMPRESSION: 1. There is no hemorrhage, mass effect, or evidence of acute territorial ischemia by CT criteria. 2. Unremarkable CT angiogram of the brain. 3. Unremarkable CT angiogram of the neck. ACT 112: Negative or not required by law. Electronically signed by: Jt Lamar M.D. 11/26/2022 12:35 PM Head CTA 11/26/22 11:[address] OF THE BRAIN; CT ANGIOGRAM OF THE BRAIN; CT ANGIOGRAM OF THE NECK CLINICAL HISTORY: Neurological deficit. Stroke like symptoms. COMPARISON STUDY: No priors. TECHNIQUE: Unenhanced axial CT scan of the brain is performed. Subsequently, following the IV administration of 112 of Optiray 320, CT angiogram of the head and neck was performed from the aortic arch to the vertex. Images are reviewed in the axial, sagittal, and coronal planes. 3-D MIPS images are created and assessed. IV contrast was administered without complication. All measurements were calculated based on NASCET criteria. A dose lowering technique was utilized adhering to the principles of ALARA. CT DOSE: 1183.43 mGy.cm FINDINGS: Brain parenchyma: The brain parenchyma is normal in appearance. There is no hemorrhage, mass effect, or evidence of acute territorial ischemia by CT criteria. There is no evidence of enhancing mass lesion on the angiogram phase images. The ventricles, sulci, and cisterns are normal in configuration. Rivera- white matter differentiation is preserved. No extra-axial fluid collection is seen. Thoracic aorta: Visualized portions of the thoracic aorta are normal in caliber. The aortic arch demonstrates standard 3-vessel anatomy. Right carotid arterial system: The right common carotid artery is widely patent, as are the right internal and external carotid arteries. Left carotid arterial system: The left common carotid artery is widely patent, as are the left internal and external carotid arteries. Vertebral arteries: The vertebral arteries are widely patent bilaterally noting mild right-sided dominance. Subclavian arteries: Widely patent bilaterally. Intracranial vasculature: The [place] is developmentally complete. The internal carotid arteries are patent at the skull base, as are the anterior and middle cerebral arteries bilaterally. The vertebrobasilar system and posterior cerebral arteries are widely patent. The right vertebral artery is dominant. There is no aneurysm, high-grade stenosis, or focal vessel cut off seen throughout the intracranial circulation. Jugular veins: Patent bilaterally. Dural sinuses: Patent. Lung apices: Partially visualized upper lobe lung parenchyma appears clear. Soft tissues: The visualized pharyngeal soft tissues are normal in appearance noting angiographic phase technique. The oropharyngeal airway appears widely patent. The salivary and thyroid glands are normal in appearance. No cervical lymphadenopathy is seen. Skeletal structures: The calvarium appears intact. The cervical spine is within normal limits. Orbits: The bony orbits are intact. Orbital contents are normal as visualized. Sinuses and mastoids: There is trace mucosal thickening in the right maxillary antrum. The remaining paranasal sinuses are clear. The mastoid air cells are well pneumatized. IMPRESSION: 1. There is no hemorrhage, mass effect, or evidence of acute territorial ischemia by CT criteria. 2. Unremarkable CT angiogram of the brain. 3. Unremarkable CT angiogram of the neck. ACT 112: Negative or not required by law. Electronically signed by: Jt Lamar M.D. 11/26/2022 12:35 PM Neck CTA 11/26/22 11:[address] OF THE BRAIN; CT ANGIOGRAM OF THE BRAIN; CT ANGIOGRAM OF THE NECK CLINICAL HISTORY: Neurological deficit. Stroke like symptoms. COMPARISON STUDY: No priors. TECHNIQUE: Unenhanced axial CT scan of the brain is performed. Subsequently, following the IV administration of 112 of Optiray 320, CT angiogram of the head and neck was performed from the aortic arch to the vertex. Images are reviewed in the axial, sagittal, and coronal planes. 3-D MIPS images are created and assessed. IV contrast was administered without complication. All measurements were calculated based on NASCET criteria. A dose lowering technique was utilized adhering to the principles of ALARA. CT DOSE: 1183.43 mGy.cm FINDINGS: Brain parenchyma: The brain parenchyma is normal in appearance. There is no hemorrhage, mass effect, or evidence of acute territorial ischemia by CT cri teria. There is no evidence of enhancing mass lesion on the angiogram phase images. The ventricles, sulci, and cisterns are normal in configuration. Rivera- white matter differentiation is preserved. No extra-axial fluid collection is seen. Thoracic aorta: Visualized portions of the thoracic aorta are normal in caliber. The aortic arch demonstrates standard 3-vessel anatomy. Right carotid arterial system: The right common carotid artery is widely patent, as are the right internal and external carotid arteries. Left carotid arterial system: The left common carotid artery is widely patent, as are the left internal and external carotid arteries. Vertebral arteries: The vertebral arteries are widely patent bilaterally noting mild right-sided dominance. Subclavian arteries: Widely patent bilaterally. Intracranial vasculature: The [place] is developmentally complete. The internal carotid arteries are patent at the skull base, as are the anterior and middle cerebral arteries bilaterally. The vertebrobasilar system and posterior cerebral arteries are widely patent. The right vertebral artery is dominant. There is no aneurysm, high-grade stenosis, or focal vessel cut off seen throughout the intracranial circulation. Jugular veins: Patent bilaterally. Dural sinuses: Patent. Lung apices: Partially visualized upper lobe lung parenchyma appears clear. Soft tissues: The visualized pharyngeal soft tissues are normal in appearance noting angiographic phase technique. The oropharyngeal airway appears widely patent. The salivary and thyroid glands are normal in appearance. No cervical lymphadenopathy is seen. Skeletal structures: The calvarium appears intact. The cervical spine is within normal limits. Orbits: The bony orbits are intact. Orbital contents are normal as visualized. Sinuses and mastoids: There is trace mucosal thickening in the right maxillary antrum. The remaining paranasal sinuses are clear. The mastoid air cells are well pneumatized. IMPRESSION: 1. There is no hemorrhage, mass effect, or evidence of acute territorial ischemia by CT criteria. 2. Unremarkable CT angiogram of the brain. 3. Unremarkable CT angiogram of the neck. ACT 112: Negative or not required by law. Electronically signed by: Jt Lamar M.D. 11/26/2022 12:35 PM Brain MRI 11/26/22 13:28 MRI OF THE BRAIN WITHOUT IV CONTRAST CLINICAL HISTORY: Retinal artery occlusion. COMPARISON STUDY: CT of the brain performed the same day 11/26/2022. TECHNIQUE: MRI of the brain was performed utilizing various T1 and T2-weighted sequences in the axial, sagittal, and coronal planes. IV contrast was not administered for this examination. FINDINGS: Brain parenchyma: The brain parenchyma is normal in appearance. There is no hemorrhage or mass effect. There is no restricted diffusion to suggest acute ischemia. Rivera-white matter differentiation is preserved. No extra-axial fluid collection is seen. The cerebellar tonsils are normal in configuration. Ventricles, sulci, and cisterns: Normal in configuration. Pituitary and sella: Unremarkable. Intracranial vasculature: Normal flow voids are maintained at the skull base. Orbits: The bony orbits are grossly intact. Orbital contents are normal in eleuterio earance. Sinuses and mastoids: Clear. Calvarium: Unremarkable. Cervical cord: Partially visualized cervical spinal cord is normal in morphology and signal intensity. IMPRESSION: No acute intracranial abnormality. ACT 112: Negative or not required by law. Electronically signed by: Jt Lamar M.D. 11/26/2022 3:53 PM Hospital Course (1) Branch retinal artery occlusion of right eye: Patient was admitted for work-up for his branch retinal artery occlusion of the right eye at the recommendation of Dr Ramos Montaño, [facility]. Work-up was entirely normal including MRI brain, CTA head/neck, echocardiogram (except mild LVH), inflammatory markers (sed rate/crp), and telemetry (no a.fib/flutter seen). During the stay his ocular complaints of the right eye remained stable. He did not have any clinic worsening of his vision. It was noted that his BPs were mildly elevated throughout the visit. See #2 below. He was seen in consult by Dr Ayush Barton, [facility], who recommended once daily aspirin 81mg for secondary prevention. He also recommended consideration of starting anti-hypertensive medication. Prior to discharge a hypercoagulable work-up was dispatched (Factor 5 Leiden mutation, prothrombin gene mutation, lupus anticoagulant, protein C/S activity, etc). Once these labs return they will be forwarded to Dr Montaño, his clinical services director. I recommended to the patient that he check his BPs at home if possible and to follow-up with his PCP for such. He has scheduled follow-up with Dr Montaño within a few weeks of discharge. (2) Elevated blood pressure reading without diagnosis of hypertension: Most systolic BP readings were in the 130s while here. He had an occasional reading higher than 140. He has never been told that he has HTN. I recommended he check his BPs at home daily and present those readings to his PCP for review. (3) Headache: Patient's recent ocular complaints were associated with headache. He has no prior h/o migraine or chronic headaches. It is possible that his recent headaches are related to the retinal branch occlusion and subsequent visual disturbance but it was uncertain. The patient reported no recent illness. COVID testing was negative. Lyme testing was negative. Anaplasmosis testing was sent and returned negative. Recommended tylenol prn and to f/u with his PCP if headaches persist. (4) Hx of seizure disorder: Continue tegretol as previous. He has not had a seizure in many years by report. Total Time Total Time Spent Total Time Spent (In Minutes): 40 Discharge Plan Discharge Items Patient Disposition: Home - Self-Care Reason For Visit: BRANCH RETINAL ARTERY OCCLUSION Discharge Diagnosis: 1. Branch retinal artery occlusion of right eye - exact etiology uncertain 2. Elevated blood pressure without diagnosis of hypertension 3. Headaches Activity: As commented below Activity Comment: Take it easy today and tomorrow, then gradually resume normal activities Non-emergency contact: Primary Care Provider and Import/Export Analyst Call non-emergency contact if: you have any medication questions and your symptoms worsen Follow-up/Referrals: Ramos Montaño MD [Other] (see Dr Montaño as directed later this month) Martha Billings MD [Primary Care Provider] - (see your family doctor later this week as scheduled ) Diet: Heart Healthy Addtl Attending Provider Instructions: Mr Obrien, Shivam were admitted to the hospital after being diagnosed with a "branch retinal artery occlusion" (see handout) by Dr Montaño at [facility]. This was the cause of your visual changes in the right eye. Upon admission to [facility] you underwent a series of tests including - * MRI brain - normal; no tumors, stroke, etc found * CT scans of the head & neck looking at your blood vessels - these returned normal * telemetry heart monitoring - normal * echocardiogram - normal heart function, normal heart valves, no blood clots seen * numerous lab tests - all normal thus far * normal inflammatory markers (normal "sed rate" and "CRP") * no evidence of diabetes (normal hemoglobin a1c of 5%) * LDL cholesterol 113; LDL is "bad" cholesterol (goal is <100) * HDL cholesterol 39; HDL is "good" cholesterol (goal is >45) Prior to discharge we collected and sent additional blood tests looking for causes of blood clotting. These tests will screen for genetic conditions that you could have inherited from your mom or dad that can increase the chances of clotting. Other tests will look for autoimmune conditions that can set someone up for clotting. Once I receive these tests I will send them to Dr Montaño. Dr Ayush Barton from [facility] saw you in consult and recommended a baby aspirin - 81mg - once daily for prevention of future stroke. The aspirin can be purchased [id number]. The exact cause of your headaches is uncertain. It is possible it is related to your right ocular/retinal issue. Or, perhaps they are muscular headaches, or "tension" headaches. For the headache I would suggest taking tylenol [id number], 1000mg every 6 hours as needed, maximum 3000mg in 24 hours. If the headache persists despite tylenol then you can use the "migraine" pill previously prescribed to you. With respect to your blood pressure please check your blood pressure twice daily at home. Write these numbers down in a notebook. Show these blood pressure values to your family doctor. If they continue to run high your family doctor may start blood pressure medication. Follow-up - 1. see your family doctor later this week 2. see Dr Montaño with [facility] as scheduled later this month Return to [facility] if - * your right eye vision gets worse * you develop left eye visual disturbance * you develop double vision in either eye * you develop any new neurological symptoms (weakness, numbness, etc) of your arms or legs * your headaches worsen * any other concerns It was our pleasure to care for you! -Dr Dawson Pending Studies at Discharge: Yes Studies:: Numerous labs looking for causes of blood clotting; lyme disease testing; anaplasmosis (another tick illness) testing Stand-Alone Forms: My [facility], Smoking Cessation Medications and DC Order Prescriptions: New aspirin 81 mg Tablet,Delayed Release (Dr/Ec) 81 mg PO QAM Qty: 90 3RF Rx Instructions: purchase [id number] Continued jeogsekkmz-whpadprwrcyau-bcrc 50-325-40 mg tablet 1 tab PO Q8 PRN (Reason: Headache) pantoprazole 40 mg tablet,delayed release (DR/EC) 40 mg PO DAILY carbamazepine 300 mg capsule, ER multiphase 12 hr 600 mg PO DAILY Discharge Orders: Discharge Order (Routine); Ordered 11/27/22 Ordered By: Jeff Dawson Admission Data Admit Date/Time: 11/26/22 13:55 Attending Provider: Jeff Dawson Admit Provider: Jeff Hercules Primary Care Provider: Martha Billings Other Providers: Jeff Hercules ; Jerry Barton Other Interventions: Discharge Summary Assessment (RN) Last Done: 11/27/22 14:00 Coding Level of Care Code 06539 INP/OBS DISCH >30 MIN Diagnoses Branch retinal artery occlusion of right eye H34.231 Elevated blood pressure reading without diagnosis of hypertension R03.0 Headache R51.9 Hx of seizure disorder Z86.69
[2022-11-27 13:44] LABS: Lyme Ab IgG w/WB Rflx Negative (Negative); Lyme Ab IgM w/WB Rflx Negative (Negative)
[2022-11-28 02:44] LABS: Rapid Plasma Reagin Nonreactive (Nonreactive)
--- NOTE | 2022-11-28 05:48 | Electrocardiogram Report ---
Test Reason : Blood Pressure : / mmHG Vent. Rate : 079 BPM Atrial Rate : 079 BPM P-R Int : 158 ms QRS Dur : 084 ms QT Int : 364 ms P-R-T Axes : 047 048 031 degrees QTc Int : 417 ms Normal sinus rhythm Low voltage QRS Borderline ECG No previous ECGs available Confirmed by Adrian Silva ([id number]) on 11/28/2022 5:47:55 AM Referred By: REFERRED SELF Confirmed By:Adrian Silva
== END 2022-11-27 14:15 | disposition home or self-care (01) | DRG 123 ==
LOC: ED 10:37 → SUATTDRO 13:55 → EDINP 13:55 → 2W 15:49
DX: R03.0 Elevated blood-pressure reading, without diagnosis of hypertension; Z79.899 Other long term (current) drug therapy; R51.9 Headache, unspecified; H34.231 Retinal artery branch occlusion, right eye; G40.909 Epilepsy, unspecified, not intractable, without status epilepticus; Z91.018 Allergy to other foods